=== PATIENT | male | born 1950 | race African-American/Black ===

== ENCOUNTER → 2024-01-19 | Outpatient (CLI) | payer MEDICARE, MEDICAID, SELFPAY ==
--- NOTE | 2024-01-19 16:00 | RAD_ITS ---
EXAM: XR LEFT HAND COMPLETE, 3 OR MORE VIEWS CLINICAL INDICATION: pain TECHNIQUE: Frontal, lateral and oblique views of the left hand. COMPARISON: No relevant prior studies available. FINDINGS: BONES/JOINTS: Small somewhat sclerotic lunate identified which may represent changes of chronic ischemic gliosis. Mild narrowing of the radiocarpal joint space. No periarticular erosion. No acute fracture or subluxation. SOFT TISSUES: Soft tissue swelling noted along the dorsum of the wrist. No radiopaque foreign body. 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 No acute fracture or subluxation. Electronically Signed: Tom Restrepo MD at 16:14 EDT ,
== END | disposition home or self-care (01) ==
PROVIDERS: Referring Provider Physician Assistant; Visit Provider Physician Assistant
DX: M79.642 Pain in left hand (principal)
CPT/HCPCS: 73130